=== PATIENT | male | born 2000 | race Caucasian/White ===

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

== ENCOUNTER 2020-08-16 06:05 | Emergency (ER) | payer SELFPAY ==
[2020-08-16] MEDS ORDERED: HALOPERIDOL LACTATE 5 MG/1 ML INJ ONE (06:15)
[2020-08-16] MEDS ORDERED: LORazepam 2 MG/ML VIAL ONE (06:15)
[2020-08-16] MEDS ORDERED: HALOPERIDOL LACTATE 5 MG/1 ML INJ IM PRN (06:17)
[2020-08-16] MEDS ORDERED: LORazepam 2 MG/ML VIAL IM PRN (06:17)
[2020-08-16] MEDS ORDERED: DIPHtheria,PERTUSSIS(ACELL),TETANUS VACCINE/PF 0.5 ML VIAL IM ONE ×2 (06:17→10:48)
--- NOTE | 2020-08-16 06:19 | Emergency Department Report ---
<SHARA FINK III - Last Filed: 08/16/20 20:45> ED General Adult HPI - General Chief complaint: Psych Stated complaint: 1013/DELUSIONAL/HEAD LAC Time Seen by Provider: 08/16/20 06:11 - Related Data Previous Rx's Medication Instructions Recorded Last Taken Type Ciprofloxacin HCl [Ciprofloxacin 500 mg PO Q12H #14 tab 08/06/17 Unknown Rx TAB] Allergies Allergy/AdvReac Type Severity Reaction Status Date / Time No Known Allergies Allergy Verified 08/16/20 06:16 ED Past Medical Hx - Medications Home Medications: Home Medications Medication Instructions Recorded Confirmed Last Taken Type Ciprofloxacin HCl [Ciprofloxacin 500 mg PO Q12H #14 tab 08/06/17 08/18/20 Unkno wn Rx TAB] ED Course - Reevaluation(s) Reevaluation #5: Patient signed out to me from previous physician. Patient has a pending UA and UDS. We will also continue to monitor patient's blood pressure. 08/16/20 16:00 Patient's urine is negative. Patient UDS is positive. Patient at this time blood pressure is stable. Patient is medically cleared from medical standpoint. Patient's final disposition will come from our psychiatry team. 08/16/20 20:45 ED Medical Decision Making - Lab Data Result diagrams: 08/16/20 11:28 08/16/20 07:09 ED Disposition Clinical Impression: Closed head injury, Forehead abrasion, Medical clearance for psychiatric admission, Mood disorder Disposition: DC-01 TO HOME OR SELFCARE Condition: Stable Instructions: Mood Disorders (ED) Additional Instructions: Outpatient [facility] Resources: [facility] ([facility]) [address] [place] [address] / Friday thru Friday - 8am - 5pm [facility] Address: [address] [place] [address] Friday thru Friday- 7am-2pm [facility] Address: [address] [place] [address] Friday thru Friday: 8:30AM-5PM CRISIS RESOURCES [place] Crisis Line: Suicide Prevention Line: Crisis Text Line: Text START to 229299 Emergency: 911 [facility] [employer] [facility] [employer] is to take chronically homeless men and help them overcome their barriers, change them as human beings,making them productive and self-chao fficient individuals. Each [employer] participant is housed at our facility for up to a year while they participate in transitional work (earning $7.40/hr for 30+ hours per week). All participants renounce dependency and remain drug and alcohol free. Personal support, case management, and workforce training is offered throughout the program. We also provide AA/NA Classes, GED classes, support in obtaining a paratransit driver's licenses,help setting up a bank account,and life skill preparation courses. IF A MAN IS COMMITTED TO BEING CLEAN, TO ADDRESSING THE PAST, AND TO WORKING, WE WILL HELP HIM GET A PRIVATE TUTOR JOB, TRANSPORTATION AND PERMANENT HOUSING WITHIN A YEAR. [employer] [address] [place], [place] [id number] [email or web address] Referrals: PRIMARY CARE, [Primary Care Provider] - [facility] Days <EMMA TANG - Last Filed: 08/18/20 14:48> ED Medical Decision Making - Lab Data Result diagrams: 08/18/20 06:38 08/16/20 07:09 ED Disposition Is pt being admited?: No Does the pt Need Aspirin: No Time of Disposition: 14:48 <DANII HERNANDEZ - Last Filed: 08/21/20 14:49> ED General Adult HPI - General PUI?: No Source: patient, police (Verbal report received from security program manager Marcial), RN notes reviewed Mode of arrival: Stretcher Limitations: Other (Patient is acutely psychotic and disorganized) - History of Present Illness Initial comments: The patient was evaluated in the emergency department for symptoms described in the history of present illness. He/she was evaluated in the context of the global COVID-19 pandemic, which necessitated consideration that the patient might be at risk for infection with the virus that causes COVID-19. Institutional protocols and algorithms that pertain to the evaluation of patients at risk for COVID-19 are in a state of rapid change based on information released by regulatory bodies including the CDC and federal and state organizations. These policies and algorithms were followed during the patient's care in the emergency department. Please note that these policies, procedures and recommendations changed on a rapid basis. The patient is a 19-year-old gentleman, who is not known to myself previously, who was brought to the hospital by local assurance officer for psychiatric ev aluation. The patient is acutely psychotic and disorganized and is a poor historian. History is primarily obtained from accompanying Officer Marcial. Apparently, local police officers were called secondary to a domestic disturbance of some sort, the patient was reportedly throwing things at his house. At some point in time he attempted to hang himself, and he informed me that he is ", slightly delusional." The patient denies physical pain. The patient has an abrasion to his forehead and cannot tell me how he sustained this abrasion. The patient cannot answer if he is attempted to overdose on anything. The patient indicates he is not having abdominal pain or chest pain or shortness of breath. The patient is not accompanied by friends or family at this time for further information. The patient is not able to describe the qualitative nature of his symptoms, exacerbating, relieving factors, or aggravating factors. -: This morning ED Review of Systems ROS: Stated complaint: 1013/DELUSIONAL/HEAD LAC Other details as noted in HPI Comment: Unobtainable due to pts medical conditions ED Past Medical Hx - Social History Smoking Status: Current Every Day Smoker Substance Use Type: Alcohol, Methamphetamines ED Physical Exam - General Limitations: Other (Disorganization, agitation and psychosis) General appearance: anxious - Head Head exam: Present: normocephalic, other (There is a midline forehead abrasion, approximately 1.5 cm) - Eye Eye exam: Present: normal appearance, PERRL, EOMI. Absent: nystagmus - ENT ENT exam: Present: normal exam, normal orophraynx, mucous membranes moist, normal external ear exam - Neck Neck exam: Present: normal inspection, full ROM. Absent: tenderness, meningismus - Respiratory Respiratory exam: Present: normal lung sounds bilaterally. Absent: respiratory distress, wheezes, rales, rhonchi, stridor - Cardiovascular Cardiovascular Exam: Present: regular rate, normal rhythm, normal heart sounds. Absent: bradycardia, tachycardia, irregular rhythm, systolic murmur, diastolic murmur, rubs, gallop - GI/Abdominal GI/Abdominal exam: Present: soft, normal bowel sounds. Absent: distended, ten derness, guarding, rebound, rigid, pulsatile mass - Rectal Rectal exam: Present: deferred - Extremities Exam Extremities exam: Present: normal inspection, full ROM, other (2+ pulses noted in the bilateral upper and lower extremities. There is no palpable cord. negative Homans sign. Muscular compartments are soft. The pelvis is stable.). Absent: pedal edema, calf tenderness - Back Exam Back exam: Present: normal inspection, full ROM. Absent: tenderness, CVA tenderness (R), muscle spasm, paraspinal tenderness, vertebral tenderness - Neurological Exam Neurological exam: Present: altered (The patient is awake. The patient moves 4 extremities. The patient responds to name. The patient states he is homicidal or delusional. The patient cannot tell me why he attempted to hang himself.), normal gait, other (No facial droop. Tongue midline. Extraocular movements intact bilaterally. Facial sensation intact to light touch in V1, V2, V3 distribution bilaterally. 5 and a 5 strength in 4 extremities. Sensation intact to light touch in 4 extremities.) - Psychiatric Psychiatric exam: Present: agitated, anxious - Skin Skin exam: Present: warm, abrasion ED Course Vital Signs 08/16/20 08/16/20 08/16/20 06:28 06:59 07:00 Temperature 98.1 F Pulse Rate 98 H 83 92 H Respiratory 16 22 23 Rate Blood Pressure 113/54 113/54 Blood Pressure 115/70 [Right] O2 Sat by Pulse 97 94 95 Oximetry 08/16/20 08/16/20 08/16/20 07:16 07:30 07:46 Temperature Pulse Rate 84 85 83 Respiratory 23 22 22 Rate Blood Pressure 113/54 113/54 113/54 Blood Pressure [Right] O2 Sat by Pulse 94 94 94 Oximetry 08/16/20 08/16/20 08/16/20 08:00 08:16 08:30 Temperature Pulse Rate 81 79 80 Respiratory 22 22 22 Rate Blood Pressure 102/48 113/54 113/54 Blood Pressure [Right] O2 Sat by Pulse 92 95 97 Oximetry 08/16/20 08/16/20 08/16/20 08:46 08:52 09:00 Temperature 98.3 F Pulse Rate 74 78 71 Respiratory 20 16 21 Rate Blood Pressure 113/54 96/43 Blood Pressure 102/48 [Right] O2 Sat by Pulse 97 98 96 Oximetry 08/16/20 08/16/20 08/16/20 09:16 09:30 09:46 Temperature Pulse Rate 66 70 68 Respiratory 17 19 17 Rate Blood Pressure 95/39 95/39 95/39 Blood Pressure [Right] O2 Sat by Pulse 97 97 98 Oximetry 08/16/20 08/16/20 08/16/20 10:00 10:16 10:30 Temperature Pulse Rate 67 61 66 Respiratory 17 17 18 Rate Blood Pressure 101/49 101/49 101/49 Blood Pressure [Right] O2 Sat by Pulse 99 97 97 Oximetry 08/16/20 08/16/20 08/16/20 10:46 11:00 11:15 Temperature Pulse Rate 53 L 62 59 L Respiratory 21 16 16 Rate Blood Pressure 95/38 95/45 99/49 Blood Pressure [Right] O2 Sat by Pulse 99 99 99 Oximetry 08/16/20 08/16/20 08/16/20 11:30 11:45 12:00 Temperature Pulse Rate 85 72 68 Respiratory 15 18 18 Rate Blood Pressure 99/49 96/56 98/46 Blood Pressure [Right] O2 Sat by Pulse 99 100 99 Oximetry 08/16/20 08/16/20 08/16/20 12:15 12:30 12:45 Temperature Pulse Rate 68 85 61 Respiratory 16 17 17 Rate Blood Pressure 91/43 91/43 97/47 Blood Pressure [Right] O2 Sat by Pulse 99 97 97 Oximetry 08/16/20 08/16/20 08/16/20 13:00 13:15 13:30 Temperature Pulse Rate 63 62 56 L Respiratory 17 16 17 Rate Blood Pressure 95/46 101/50 105/49 Blood Pressure [Right] O2 Sat by Pulse 96 97 98 Oximetry 08/16/20 08/16/20 08/16/20 13:45 14:00 14:15 Temperature Pulse Rate 67 67 62 Respiratory 17 14 18 Rate Blood Pressure 95/49 90/41 97/53 Blood Pressure [Right] O2 Sat by Pulse 98 98 99 Oximetry 08/16/20 08/16/20 08/16/20 14:30 14:45 15:00 Temperature Pulse Rate 59 L 60 65 Respiratory 15 15 15 Rate Blood Pressure 88/44 90/35 88/38 Blood Pressure [Right] O2 Sat by Pulse 99 99 99 Oximetry 08/16/20 08/16/20 08/16/20 15:15 15:31 15:45 Temperature Pulse Rate 71 67 55 L Respiratory 15 23 14 Rate Blood Pressure 99/45 95/50 93/43 Blood Pressure [Right] O2 Sat by Pulse 100 98 99 Oximetry 08/16/20 08/16/20 08/16/20 16:00 16:15 16:30 Temperature Pulse Rate 62 63 56 L Respiratory 19 18 15 Rate Blood Pressure 92/43 93/47 93/42 Blood Pressure [Right] O2 Sat by Pulse 98 98 97 Oximetry 08/16/20 08/16/20 08/16/20 16:45 17:00 17:15 Temperature Pulse Rate 62 58 L 67 Respiratory 16 17 18 Rate Blood Pressure 91/44 90/28 81/36 Blood Pressure [Right] O2 Sat by Pulse 97 96 97 Oximetry 08/16/20 08/16/20 08/16/20 17:30 17:45 18:00 Temperature Pulse Rate 62 70 53 L Respiratory 17 23 17 Rate Blood Pressure 80/28 80/28 100/61 Blood Pressure [Right] O2 Sat by Pulse 97 97 98 Oximetry 08/16/20 08/16/20 08/16/20 18:15 18:30 18:45 Temperature Pulse Rate 69 69 80 Respiratory 15 17 16 Rate Blood Pressure 101/60 83/27 78/34 Blood Pressure [Right] O2 Sat by Pulse 99 99 98 Oximetry 08/16/20 08/16/20 08/16/20 19:00 19:25 19:45 Temperature 98.2 F Pulse Rate 64 75 94 H Respiratory 18 18 17 Rate Blood Pressure 101/57 98/41 Blood Pressure 101/57 [Right] O2 Sat by Pulse 98 98 98 Oximetry 08/16/20 08/16/20 08/16/20 20:00 20:15 20:30 Temperature Pulse Rate 69 95 H 80 Respiratory 17 17 17 Rate Blood Pressure 102/50 102/50 92/45 Blood Pressure [Right] O2 Sat by Pulse 99 99 99 Oximetry 08/16/20 08/16/20 08/16/20 21:00 21:15 21:30 Temperature Pulse Rate 69 81 80 Respiratory 18 18 13 Rate Blood Pressure 94/51 94/51 93/47 Blood Pressure [Right] O2 Sat by Pulse 100 98 100 Oximetry 08/16/20 08/16/20 08/16/20 22:00 22:15 22:30 Temperature Pulse Rate 60 58 L 61 Respiratory 19 18 17 Rate Blood Pressure 99/49 104/46 103/48 Blood Pressure [Right] O2 Sat by Pulse 98 97 96 Oximetry 08/16/20 08/16/20 08/16/20 22:41 22:45 23:00 Temperature Pulse Rate 60 63 62 Respiratory 15 16 16 Rate Blood Pressure 103/48 110/56 93/42 Blood Pressure [Right] O2 Sat by Pulse 97 98 97 Oximetry 08/16/20 08/16/20 08/16/20 23:15 23:30 23:45 Temperature Pulse Rate 83 55 L 59 L Respiratory 25 H 19 17 Rate Blood Pressure 93/42 108/59 107/51 Blood Pressure [Right] O2 Sat by Pulse 99 97 99 Oximetry 08/17/20 08/17/20 08/17/20 00:00 00:15 00:31 Temperature Pulse Rate 60 52 L 56 L Respiratory 15 16 15 Rate Blood Pressure 102/50 104/47 104/47 Blood Pressure [Right] O2 Sat by Pulse 98 97 97 Oximetry 08/17/20 08/17/20 08/17/20 00:45 01:01 01:15 Temperature Pulse Rate 56 L 56 L 56 L Respiratory 18 17 21 Rate Blood Pressure 104/47 104/47 104/47 Blood Pressure [Right] O2 Sat by Pulse 97 97 99 Oximetry 08/17/20 08/17/20 08/17/20 01:30 01:45 02:00 Temperature Pulse Rate 56 L 54 L 52 L Respiratory 19 18 17 Rate Blood Pressure 94/39 97/46 97/46 Blood Pressure [Right] O2 Sat by Pulse 96 98 98 Oximetry 08/17/20 08/17/20 08/17/20 02:15 02:30 02:45 Temperature Pulse Rate 53 L 51 L 79 Respiratory 14 17 16 Rate Blood Pressure 106/62 111/49 111/49 Blood Pressure [Right] O2 Sat by Pulse 98 96 98 Oximetry 08/17/20 08/17/20 08/17/20 03:01 03:15 03:31 Temperature Pulse Rate 100 H 54 L 53 L Respiratory 20 13 13 Rate Blood Pressure 111/49 111/49 111/49 Blood Pressure [Right] O2 Sat by Pulse 98 99 99 Oximetry 08/17/20 08/17/20 08/17/20 04:30 04:45 05:00 Temperature Pulse Rate 52 L 49 L 52 L Respiratory 16 18 23 Rate Blood Pressure 96/45 106/62 114/68 Blood Pressure [Right] O2 Sat by Pulse 97 100 99 Oximetry 08/17/20 08/17/20 08/17/20 05:15 06:00 06:15 Temperature Pulse Rate 50 L 65 64 Respiratory 14 13 12 Rate Blood Pressure 102/54 111/61 111/61 Blood Pressure [Right] O2 Sat by Pulse 98 99 97 Oximetry 08/17/20 08/17/20 08/17/20 06:45 07:00 07:15 Temperature Pulse Rate 54 L 49 L 49 L Respiratory 16 16 17 Rate Blood Pressure 105/51 102/61 96/45 Blood Pressure [Right] O2 Sat by Pulse 97 99 98 Oximetry 08/17/20 08/17/20 08/17/20 07:30 07:45 08:00 Temperature Pulse Rate 51 L 54 L 55 L Respiratory 16 16 21 Rate Blood Pressure 101/49 107/45 104/57 Blood Pressure [Right] O2 Sat by Pulse 97 98 99 Oximetry 08/17/20 08/17/20 08/17/20 08:15 08:30 08:43 Temperature Pulse Rate 53 L 52 L 54 L Respiratory 11 L 15 16 Rate Blood Pressure 110/53 112/53 Blood Pressure 114/52 [Right] O2 Sat by Pulse 97 98 97 Oximetry 08/17/20 08/17/20 08/17/20 08:45 09:00 09:15 Temperature Pulse Rate 51 L 53 L 50 L Respiratory 11 L 20 15 Rate Blood Pressure 116/54 104/54 96/48 Blood Pressure [Right] O2 Sat by Pulse 97 97 98 Oximetry 08/17/20 08/17/20 08/17/20 09:30 09:45 10:00 Temperature Pulse Rate 47 L 54 L 57 L Respiratory 13 22 17 Rate Blood Pressure 101/57 103/58 112/50 Blood Pressure [Right] O2 Sat by Pulse 97 99 98 Oximetry 08/17/20 08/17/20 08/17/20 10:15 10:30 10:45 Temperature Pulse Rate 71 52 L 56 L Respiratory 15 12 13 Rate Blood Pressure 112/50 106/42 109/51 Blood Pressure [Right] O2 Sat by Pulse 70 L 97 97 Oximetry 08/17/20 08/17/20 08/17/20 11:00 11:15 11:30 Temperature Pulse Rate 53 L 56 L 59 L Respiratory 17 16 14 Rate Blood Pressure 107/47 105/54 99/43 Blood Pressure [Right] O2 Sat by Pulse 99 97 97 Oximetry 08/17/20 08/17/20 08/17/20 11:45 12:00 12:15 Temperature Pulse Rate 64 64 62 Respiratory 18 17 17 Rate Blood Pressure 98/48 110/56 104/53 Blood Pressure [Right] O2 Sat by Pulse 97 99 98 Oximetry 08/17/20 08/17/20 08/17/20 12:31 12:45 13:01 Temperature Pulse Rate 95 H 60 56 L Respiratory 16 17 22 Rate Blood Pressure 104/53 104/53 104/53 Blood Pressure [Right] O2 Sat by Pulse 97 96 97 Oximetry 08/17/20 08/17/20 08/17/20 13:15 13:31 13:45 Temperature Pulse Rate 60 63 106 H Respiratory 17 18 17 Rate Blood Pressure 104/53 104/53 104/53 Blood Pressure [Right] O2 Sat by Pulse 97 98 97 Oximetry 08/17/20 08/17/20 08/17/20 14:01 14:15 14:31 Temperature Pulse Rate Respiratory 19 17 18 Rate Blood Pressure 104/53 104/53 104/53 Blood Pressure [Right] O2 Sat by Pulse 97 98 98 Oximetry 08/17/20 08/17/20 08/17/20 14:45 15:01 15:15 Temperature Pulse Rate 56 L Respiratory 19 15 19 Rate Blood Pressure 104/53 104/53 104/53 Blood Pressure [Right] O2 Sat by Pulse 98 97 99 Oximetry 08/17/20 08/17/20 08/17/20 15:31 15:45 16:01 Temperature Pulse Rate 54 L Respiratory 10 L 16 13 Rate Blood Pressure 100/48 100/48 100/48 Blood Pressure [Right] O2 Sat by Pulse 98 97 99 Oximetry 08/17/20 08/17/20 08/17/20 16:15 16:31 16:45 Temperature Pulse Rate Respiratory 18 Rate Blood Pressure 100/48 100/48 100/48 Blood Pressure [Right] O2 Sat by Pulse 98 96 98 Oximetry 08/17/20 08/17/20 08/17/20 17:00 17:15 17:31 Temperature Pulse Rate Respiratory 16 Rate Blood Pressure 98/44 98/44 98/44 Blood Pressure [Right] O2 Sat by Pulse 97 97 98 Oximetry 08/17/20 08/17/20 08/17/20 17:45 18:00 18:15 Temperature Pulse Rate 52 L 54 L 53 L Respiratory 19 17 15 Rate Blood Pressure 98/44 96/44 96/44 Blood Pressure [Right] O2 Sat by Pulse 96 97 98 Oximetry 08/17/20 08/17/20 08/17/20 18:31 18:45 19:00 Temperature Pulse Rate 78 67 59 L Respiratory 12 8 L 9 L Rate Blood Pressure 96/44 96/44 95/50 Blood Pressure [Right] O2 Sat by Pulse 98 98 99 Oximetry 08/17/20 08/17/20 08/17/20 19:15 19:30 19:31 Temperature Pulse Rate 51 L 54 L Respiratory 16 18 19 Rate Blood Pressure 95/50 95/50 Blood Pressure [Right] O2 Sat by Pulse 99 100 98 Oximetry 08/17/20 08/17/20 08/17/20 19:45 20:00 20:15 Temperature Pulse Rate 53 L 51 L 53 L Respiratory 18 17 17 Rate Blood Pressure 95/50 95/48 95/48 Blood Pressure [Right] O2 Sat by Pulse 96 96 97 Oximetry 08/17/20 08/17/20 08/17/20 20:21 20:25 20:31 Temperature Pulse Rate 71 73 57 L Respiratory 13 13 21 Rate Blood Pressure 95/48 95/48 95/48 Blood Pressure [Right] O2 Sat by Pulse 99 97 97 Oximetry 08/17/20 08/17/20 08/17/20 20:35 20:41 20:45 Temperature Pulse Rate 67 80 70 Respiratory 15 12 13 Rate Blood Pressure 95/48 95/48 95/48 Blood Pressure [Right] O2 Sat by Pulse 97 99 97 Oximetry 08/17/20 08/17/20 08/17/20 21:00 21:04 21:15 Temperature 97.5 F L Pulse Rate 68 51 L 56 L Respiratory 21 18 19 Rate Blood Pressure 112/68 112/68 Blood Pressure 112/68 95/50 [Right] O2 Sat by Pulse 97 98 98 Oximetry 08/17/20 08/17/20 08/17/20 21:30 21:45 22:01 Temperature Pulse Rate 53 L 52 L 54 L Respiratory 17 17 15 Rate Blood Pressure 107/64 107/64 Blood Pressure [Right] O2 Sat by Pulse 96 98 96 Oximetry - Reevaluation(s) Reevaluation #1: 08/16/20 06:28 Differential diagnosis, including but not limited to: Psychosis, disorganized behavior, electrolyte derangement, thyroid derangement, intracranial injury, cervical spine injury, forehead abrasion, medical clearance for psychiatric placement Assessment and plan: 19-year-old gentleman, who is afebrile, with reassuring vital signs, walking with a steady gait, moving 4 extremities, protecting his airway, presenting as acutely agitated, attempted to hang himself prior to arrival as per hospital police report, placed on a 1013. Check appropriate laboratory studies, give tetanus vaccination, obtain EKG, ur inalysis, CT scan of the brain, cervical spine, reassess once his data points have resulted. Reevaluation #2: 08/16/20 07:23 CT scan of the brain, cervical spine negative for acute injury/pathology Reevaluation #3: 08/16/20 08:18 Laboratory studies are reviewed and appreciated. Leukocytosis is likely a stress reaction. We do not suspect acute invasive infectious pathology. This incidental leukocytosis does not represent a medical contraindication to psychiatric admission, evaluation, consultation and placement. It does not require emergent recheck/evaluation. The patient is resting comfortably in his stretcher at this time and he is in no acute distress. His urinalysis is pending at this time. He is saturating well on room air, and has clear lung sounds. We do not clinically suspect COVID, but in anticipation of psychiatric placement, routine COVID's screening test has been ordered and results are pending, as per protocol. At this point in time, the patient does not have an immediate medical contraindication to psychiatric admission, evaluation, consultation and placement. Reevaluation #4: 08/16/20 11:15 Blood pressure in the mid 90s. Patient very slender and slight of stature. IV fluids ordered, urinalysis pending, resting comfortably at this time, and in no acute distress. Pending psychiatric evaluation. Reevaluation #5: 08/16/20 16:01 Care will be transferred to the oncoming ER physician, Dr. Martín Fink, to follow-up on urinalysis. Blood pressure continues to be reviewed and appreciated, patient sleeping comfortably in no acute distress, this is most likely a function of his diminutive body habitus Again, we do not suspect infectious pathology at this time blood pressures currently 95/45 08/16/20 16:03 ED Medical Decision Making - Lab Data Result diagrams: 08/18/20 06:38 08/16/20 07:09 Vital Signs 08/16/20 06:28 Temperature 98.1 F Pulse Rate 98 H Respiratory 16 Rate Blood Pressure 115/70 [Right] O2 Sat by Pulse 97 Oximetry Lab Results 08/16/20 08/16/20 08/16/20 Range/Units 07:09 07:09 07:09 WBC 18.0 H (4.5-11.0) K/mm3 RBC 5.31 H (3.65-5.03) M/mm3 Hgb 15.1 (11.8-15.2) gm/dl Hct 42.0 (35.5-45.6) % MCV 79 L (84-94) fl MCH 29 (28-32) pg MCHC 36 H (32-34) % RDW 13.3 (13.2-15.2) % Plt Count 270 (140-440) K/mm3 Sodium 136 L (137-145) mmol/L Potassium 4.1 (3.6-5.0) mmol/L Chloride 100.4 (98-107) mmol/L Carbon Dioxide 23 (22-30) mmol/L Anion Gap 17 mmol/L BUN 19 (9-20) mg/dL Creatinine 1.0 (0.8-1.3) mg/dL Estimated GFR > 60 ml/min BUN/Creatinine Ratio 19 % Glucose 105 H (75-100) mg/dL Calcium 9.9 (8.4-10.2) mg/dL Magnesium 2.30 (1.7-2.3) mg/dL Total Creatine Kinase 380 H (55-170) units/L TSH (0.270-4.200) mlU/mL Salicylates < 0.3 L (2.8-20.0) mg/dL Acetaminophen (10.0-30.0) ug/mL Plasma/Serum Alcohol (0-0.07) % 08/16/20 08/16/20 08/16/20 Range/Units 07:09 07:09 07:09 WBC (4.5-11.0) K/mm3 RBC (3.65-5.03) M/mm3 Hgb (11.8-15.2) gm/dl Hct (35.5-45.6) % MCV (84-94) fl MCH (28-32) pg MCHC (32-34) % RDW (13.2-15.2) % Plt Count (140-440) K/mm3 Sodium (137-145) mmol/L Potassium (3.6-5.0) mmol/L Chloride (98-107) mmol/L Carbon Dioxide (22-30) mmol/L Anion Gap mmol/L BUN (9-20) mg/dL Creatinine (0.8-1.3) mg/dL Estimated GFR ml/min BUN/Creatinine Ratio % Glucose (75-100) mg/dL Calcium (8.4-10.2) mg/dL Magnesium (1.7-2.3) mg/dL Total Creatine Kinase (55-170) units/L TSH 1.590 (0.270-4.200) mlU/mL Salicylates (2.8-20.0) mg/dL Acetaminophen 5.0 L (10.0-30.0) ug/mL Plasma/Serum Alcohol < 0.01 (0-0.07) % - EKG Data -: EKG Interpreted by Me EKG shows normal: sinus rhythm, axis, intervals, QRS complexes, ST-T waves Rate: normal - EKG Data When compared to previous EKG there are: previous EKG unavailable Interpretation: normal EKG - Radiology Data Radiology results: pending, report reviewed, image reviewed Critical care attestation.: If time is entered above; I have spent that time in minutes in the direct care of this critically ill patient, excluding procedure time. ED Disposition Is pt being admited?: No Does the pt Need Aspirin: No
--- NOTE | 2020-08-16 07:11 | Cat Scan Report ---
CT head/brain wo con INDICATION: Closed head injury because he tried to hang himself.. TECHNIQUE: All CT scans at this location are performed using the following dose modulation technique: Automated exposure control. CONTRAST: None. COMPARISON: None available. FINDINGS: The ventricular system is appropriate in size and configuration without midline shift. Nega tive for mass, stroke or hemorrhage. Imaged bones and paranasal sinuses are unremarkable. IMPRESSION: Negative CT brain without contrast. Signer Name: Stephen Walsh MD Signed: 08/16/2020 7:07 AM Workstation Name: [id number]
--- NOTE | 2020-08-16 07:14 | Cat Scan Report ---
CT cervical spine wo con INDICATION: Possible cervical injury because he tried to hang himself.. TECHNIQUE: All CT scans at this location are performed using the following dose modulation technique: Automated exposure control. CONTRAST: None. COMPARISON: None available. FINDINGS: The ventricular system is appropriate in size and configuration without midline shift. Nega tive for mass, stroke or hemorrhage. Imaged soft tissues are unremarkable. IMPRESSION: Negative CT cervical spine without contrast. Signer Name: Stephen Walsh MD Signed: 08/16/2020 7:10 AM Workstation Name: [id number]
[2020-08-16 07:26] LABS: Mean Corpuscular HGB Conc 36 % (32-34); Mean Corpuscular Volume 79 fl (84-94); Platelet Count 270 K/mm3 (140-440); Red Blood Count 5.31 M/mm3 (3.65-5.03); Red Cell Distribution Width 13.3 % (13.2-15.2)
[2020-08-16 07:36] LABS: Hemoglobin 15.1 gm/dl (11.8-15.2)
[2020-08-16 07:43] LABS: BUN/Creatinine Ratio 19; Blood Urea Nitrogen 19 mg/dL (9-20); Calcium 9.9 mg/dL (8.4-10.2); Hemolysis Index 7
[2020-08-16] MEDS ORDERED: SODIUM CHLORIDE 0.9% 1000 ML 2,000 ML IV ONE ×2 (10:38→16:02)
[2020-08-16] MEDS ORDERED: SODIUM CHLORIDE 0.9% 1000 ML 1,000 ML ONE (10:39)
[2020-08-16 11:37] LABS: Hematocrit 37.9 % (35.5-45.6); Hemoglobin 13.2 gm/dl (11.8-15.2); Mean Corpuscular HGB Conc 35 % (32-34); Mean Corpuscular Volume 82 fl (84-94); Platelet Count 233 K/mm3 (140-440); Red Cell Distribution Width 13.6 % (13.2-15.2)
[2020-08-16] MEDS ORDERED: SODIUM CHLORIDE 0.9% 1000 ML 1,000 ML IV ONE ×3 (14:14→19:02)
[2020-08-16] MEDS ORDERED: SODIUM CHLORIDE 0.9% 1000 ML 2,000 ML ONE (18:06)
[2020-08-16 20:01] LABS: Bilirubin,Urine NEG (Negative); Blood,Urine NEG (Negative); Color,Urine Straw (Yellow); Protein,Urine <15 mg/dL mg/dL (Negative); Urobilinogen,Urine < 2.0 mg/dL (<2.0); WBC,Urine < 1.0 /HPF (0.0-6.0)
[2020-08-16 20:37] LABS: Amphetamine Screen,Urine PRESUMPTIVE POSITIVE; Benzodiazepines Screen,Urine PRESUMPTIVE NEGATIVE; Cannabinoid Screen,Urine PRESUMPTIVE POSITIVE; Cocaine Screen,Urine PRESUMPTIVE NEGATIVE; Methadone Screen,Urine PRESUMPTIVE NEGATIVE; Opiate Screen,Urine PRESUMPTIVE NEGATIVE
[2020-08-17 07:09] LABS: Hematocrit 40.7 % (35.5-45.6); Hemoglobin 14.3 gm/dl (11.8-15.2); Mean Corpuscular HGB Conc 35 % (32-34); Mean Corpuscular Volume 81 fl (84-94); Platelet Count 244 K/mm3 (140-440); Red Blood Count 5.02 M/mm3 (3.65-5.03); Red Cell Distribution Width 13.5 % (13.2-15.2)
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
[2020-08-17] MEDS: DIVALPROEX DR 125 MG TAB PO SCH ×2 (15:26→23:53)
[2020-08-17] MEDS: hydrOXYzine PAMOATE 25 MG CAP PO SCH ×2 (15:27→23:53)
[2020-08-17] MEDS: risperiDONE 0.25 MG TAB PO SCH ×2 (15:27→23:53)
[2020-08-17] MEDS ORDERED: SODIUM CHLORIDE 0.9% 1000 ML 1,000 ML ONE (20:41)
[2020-08-17] MEDS ORDERED: SODIUM CHLORIDE 0.9% 1000 ML 1,000 ML IV ONE (21:27)
[2020-08-17 21:44] VITALS: BP 107/64
[2020-08-18 07:05] LABS: Basophils # (Auto) 0.1 K/mm3 (0.0-0.1); Basophils % (Auto) 0.6 % (0.0-1.8); Eosinophils # (Auto) 0.3 K/mm3 (0.0-0.4); Hematocrit 43.3 % (35.5-45.6); Hemoglobin 14.9 gm/dl (11.8-15.2); Lymphocytes # (Auto) 2.9 K/mm3 (1.2-5.4); Lymphocytes % (Auto) 24.8 % (13.4-35.0); Mean Corpuscular HGB Conc 34 % (32-34); Mean Corpuscular Volume 82 fl (84-94); Monocytes % (Auto) 8.4 % (0.0-7.3); Platelet Count 257 K/mm3 (140-440); Red Cell Distribution Width 13.5 % (13.2-15.2)
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
[2020-08-18] MEDS: DIVALPROEX DR 125 MG TAB PO SCH (12:30)
[2020-08-18] MEDS: risperiDONE 0.25 MG TAB PO SCH (12:31)
[2020-08-18] MEDS: hydrOXYzine PAMOATE 25 MG CAP PO SCH (12:31)
== END 2020-08-18 15:11 | disposition home or self-care (01) ==
LOC: ED 06:05
DX: F39 Unspecified mood [affective] disorder (principal); F15.90 Other stimulant use, unspecified, uncomplicated; F17.200 Nicotine dependence, unspecified, uncomplicated; Z79.899 Other long term (current) drug therapy
CPT/HCPCS: 36415; 70450; 72125; 80048; 80307; 81001; 82550; 83735; 84443; 85025; 85027; 90471; 90715; 93005; 96360; 96361; 96372; 99285; J1630; J2060; J7030; Q0177; U0003; 80320; G0480